=== PATIENT | female | born 1990 | race Caucasian/White ===

== ENCOUNTER 2016-12-18 13:56 | Inpatient (IN) | payer BC ==
[2016-12-18] MEDS: Lactated Ringers 1,000 ML IV SCH ×3 (14:30→19:26)
[2016-12-18] MEDS ORDERED: Sodium Chloride 0.9% 10 ML Syringe FLUSH PRN (14:31)
[2016-12-18] MEDS ORDERED: Ondansetron 4 MG/2 ML SDV IVPUSH PRN (14:31)
[2016-12-18] MEDS ORDERED: Nalbuphine 20 MG/1 ML Amp IVPUSH PRN (14:31)
[2016-12-18] MEDS ORDERED: Oxytocin/Lactated Ringers 10 UNIT/1,000 ML BAG IV SCH (14:45)
[2016-12-18] MEDS ORDERED: diphenhydrAMINE 50 MG/ML SDV IVPUSH PRN (15:08)
[2016-12-18] MEDS: fentaNYL 100 MCG/2 ML SDV EPIDUR PRN ×2 (15:31→21:41)
[2016-12-18] MEDS: Bupivacaine/fentaNYL/NS 100 ML Bag EPIDUR SCH ×2 (15:31→22:57)
--- NOTE | 2016-12-18 15:34 | PCM.PREANE ---
Preanesthetic Assessment - Anesthesia/Transfusion/Family Hx Anesthesia History: Prior Anesthesia Without Reaction Family History of Anesthesia Reaction: No Transfusion History: No Prior Transfusion(s) - Review of Systems General: No Symptoms Pulmonary: No Symptoms Cardiovascular: No Symptoms Gastrointestinal: No Symptoms Neurological: No Symptoms Other: Reports: None - Physical Assessment Pulse: 101 O2 Sat by Pulse Oximetry: 97 Respiratory Rate: 19 Blood Pressure: 119/43 Temperature: 36.6 C Height: 1.68 m Weight: 90.265 kg ASA Class: 2 Mental Status: Alert & Oriented x3 Airway Class: Mallampati = 1 Dentition: Reports: Normal Dentition Thyro-Mental Finger Breadths: 3 Mouth Opening Finger Breadths: 3 ROM/Head Extension: Full Lungs: Clear to Auscultation, Normal Respiratory Effort Cardiovascular: Regular Rate, Regular Rhythm, No Murmurs - Lab Values: Laboratory Last Values WBC 11.63 K/mm3 (3.98-10.04) H 12/18/16 14:45 RBC 4.57 M/mm3 (3.98-5.22) 12/18/16 14:45 Hgb 14.0 gm/L (11.2-15.7) 12/18/16 14:45 Hct 40.4 % (34.1-44.9) 12/18/16 14:45 MCV 88.4 fl (79.4-94.8) 12/18/16 14:45 MCH 30.6 pg (25.6-32.2) 12/18/16 14:45 MCHC 34.7 g/dl (32.2-35.5) 12/18/16 14:45 RDW Std Deviation 40.5 fL (36.4-46.3) 12/18/16 14:45 Plt Count 218 K/mm3 (182-369) 12/18/16 14:45 MPV 10.3 fl (9.4-12.3) 12/18/16 14:45 Neut % (Auto) 79.2 % (34.0-71.1) H 12/18/16 14:45 Lymph % (Auto) 11.9 % (19.3-51.7) L 12/18/16 14:45 [place] % (Auto) 8.1 % (4.7-12.5) 12/18/16 14:45 Eos % (Auto) 0.3 (0.7-5.8) L 12/18/16 14:45 Baso % (Auto) 0.2 % (0.1-1.2) 12/18/16 14:45 Neut # (Auto) 9.21 K/mm3 (1.56-6.13) H 12/18/16 14:45 Lymph # (Auto) 1.38 K/mm3 (1.18-3.74) 12/18/16 14:45 [place] # (Auto) 0.94 K/mm3 (0.24-0.36) H 12/18/16 14:45 Eos # (Auto) 0.04 K/mm3 (0.04-0.36) 12/18/16 14:45 Baso # (Auto) 0.02 K/mm3 (0.01-0.08) 12/18/16 14:45 - Allergies Allergies/Adverse Reactions: Allergies Allergy/AdvReac Type Severity Reaction Status Date / Time No Known Allergies Allergy Verified 12/18/16 14:36 - Anesthesia Plan Pre-Op Medication Ordered: None - Acknowledgements Anesthesia Type Planned: Epidural Pt an Appropriate Candidate for the Planned Anesthesia: Yes Alternatives and Risks of Anesthesia Discussed w Pt/Guardian: Yes Pt/Guardian Understands and Agrees with Anesthesia Plan: Yes PreAnesthesia Questionnaire Gastrointestinal History: Reports: GERD - HOME MEDS Home Medications: Home Meds PNV95/Ferrous Fumarate/FA [ Vitamin Tablet] 1 each PO DAILY 12/18/16 [ History] - CURRENT (IN HOUSE) MEDS Current Meds: Current Medications Diphenhydramine HCl (Benadryl) 25 mg IVPUSH Q6H PRN PRN Reason: Itching Ephedrine Sulfate (Ephedrine Sulfate) 5 mg IVPUSH ASDIRECTED PRN PRN Reason: HYPOTENTSION Fentanyl (Sublimaze) 100 mcg EPIDUR Q3H PRN PRN Reason: PAIN Last Admin: 12/18/16 15:31 Dose: 100 mcg Fentanyl/Bupivacaine HCl (Fentanyl/Bupivacaine/Ns 2 Mcg-0.125% 100 Ml) 100 ml EPIDUR ASDIRECTED LUIS A Last Admin: 12/18/16 15:31 Dose: 100 ml Lactated Ringer's (Ringers, Lactated) 1,000 mls @ 100 mls/hr IV ASDIRECTED LUIS A Oxytocin/Lactated Ringer's (Pitocin In Lr 10 Units/1,000 Ml) 10 unit in 1,000 mls @ 100 mls/hr IV .CONTINUOUS LUIS A Oxytocin 20 unit/ Lactated (Ringer's) 1,002 mls @ 500 mls/hr IV ASDIRECTED LUIS A Nalbuphine HCl (Nubain) 10 mg IVPUSH Q2H PRN PRN Reason: Pain (moderate 4-6) Ondansetron HCl (Zofran) 4 mg IVPUSH Q4H PRN PRN Reason: Nausea/Vomiting Sodium Chloride (Saline Flush) 10 ml FLUSH ASDIRECTED PRN PRN Reason: Keep Vein Open
[2016-12-18] MEDS: ePHEDrine 50 MG/ML SDV IVPUSH PRN ×2 (15:46→16:34)
--- NOTE | 2016-12-18 16:22 | PCM.LDHP ---
<Miguelina Hartmann - Last Filed: 12/18/16 16:10> L&D History of Present Illness - General Date of Service: 12/18/16 Admit Problem/Dx: Patient Status Order with Admit Dx/Problem 12/18/16 14:31 Patient Status [ADT] Routine Admission Diagnosis/Problem Admission Diagnosis/Problem Source of Information: Patient History Limitations: Reports: No Limitations - History of Present Illness Introduction:: Patient is 26 yo at 39 3/7 wks gestation that presents to labor and delivery for induction. WALLACE is 12/22/16. Blood type O-, antibody negative, GBS- . Patient had routine care. She is no acute distress and reports that this the most relaxed she has been throughout the . Patient does appear lethargic during questioning. Her focused physical was unremarkable. Location, : Reports: Uterus Quality: Reports: Ache, Pressure Severity: Mild - Related Data Allergies/Adverse Reactions: Allergies Allergy/AdvReac Type Severity Reaction Status Date / Time No Known Allergies Allergy Verified 12/18/16 14:36 Home Medications: Home Meds PNV95/Ferrous Fumarate/FA [ Vitamin Tablet] 1 each PO DAILY 12/18/16 [ History] Past Medical History Gastrointestinal History: Reports: GERD : 2 Para: 0 (0010) LMP (Approximate): H&P Review of Systems - Review of Systems: Review Of Systems: See Below General: Reports: Fatigue HEENT: Reports: No Symptoms Pulmonary: Reports: No Symptoms Cardiovascular: Reports: No Symptoms Gastrointestinal: Reports: No Symptoms Genitourinary: Reports: No Symptoms Musculoskeletal: Reports: No Symptoms Skin: Reports: No Symptoms Psychiatric: Reports: No Symptoms Neurological: Reports: No Symptoms Hematologic/Lymphatic: Reports: No Symptoms Immunologic: Reports: No Symptoms L&D Exam - Exam Exam: See Below - Vital Signs Vital Signs: Last Vital Signs Temp 97.9 F 12/18/16 15:33 Pulse 101 H 12/18/16 15:33 Resp 19 12/18/16 15:33 BP 119/43 L 12/18/16 15:33 Pulse Ox 97 12/18/16 15:33 Weight: 199 lb - OB Specific Movement: Active Heart Tones: Present Heart Tones per Min: 138 - Exam General: Alert, Oriented HEENT: Conjunctiva Clear, Mucosa Moist & [place], Nares Patent, Normal Nasal Septum , Posterior Pharynx Clear, Pupils Equal Neck: Supple, Trachea Midline Lungs: Clear to Auscultation, Normal Respiratory Effort Cardiovascular: Regular Rate, Regular Rhythm Rectal Exam: Deferred Extremities: Normal Inspection, Non-Tender, No Pedal Edema, Normal Capillary Refill Skin: Warm, Dry, Intact Psychiatric: Alert, Normal Affect, Normal Mood - Patient Data Lab Results Last 24 hrs: Laboratory Results - last 24 hr 12/18/16 Range/Units 14:45 WBC 11.63 H (3.98-10.04) K/mm3 RBC 4.57 (3.98-5.22) M/mm3 Hgb 14.0 (11.2-15.7) gm/L Hct 40.4 (34.1-44.9) % MCV 88.4 (79.4-94.8) fl MCH 30.6 (25.6-32.2) pg MCHC 34.7 (32.2-35.5) g/dl RDW Std Deviation 40.5 (36.4-46.3) fL Plt Count 218 (182-369) K/mm3 MPV 10.3 (9.4-12.3) fl Neut % (Auto) 79.2 H (34.0-71.1) % Lymph % (Auto) 11.9 L (19.3-51.7) % [place] % (Auto) 8.1 (4.7-12.5) % Eos % (Auto) 0.3 L (0.7-5.8) Baso % (Auto) 0.2 (0.1-1.2) % Neut # (Auto) 9.21 H (1.56-6.13) K/mm3 Lymph # (Auto) 1.38 (1.18-3.74) K/mm3 [place] # (Auto) 0.94 H (0.24-0.36) K/mm3 Eos # (Auto) 0.04 (0.04-0.36) K/mm3 Baso # (Auto) 0.02 (0.01-0.08) K/mm3 Result Diagrams: 12/18/16 14:45 Problem List Initiated/Reviewed/Updated: No Orders Last 24hrs: Active Orders 24 hr Category Date Time Status Patient Status [ADT] Routine ADT 12/18/16 14:31 Active Activity as Tolerated [RC] PFP Care 12/18/16 14:31 Active Communication Order [RC] ASDIRECTED Care 12/18/16 14:31 Active Communication Order [RC] ASDIRECTED Care 12/18/16 15:08 Active Cooling Warming Measures [RC] ASDIRECTED Care 12/18/16 15:07 Active Heart Tones [RC] ASDIRECTED Care 12/18/16 14:31 Active Notify Provider [RC] ASDIRECTED Care 12/18/16 15:08 Active Notify Provider [RC] PFP Care 12/18/16 14:31 Active Notify Provider [RC] PRN Care 12/18/16 14:31 Active Oxygen Therapy [RC] ASDIRECTED Care 12/18/16 15:07 Active Peripheral IV Care [RC] Q2HR Care 12/18/16 14:31 Active Pulse Oximetry [RC] ASDIRECTED Care 12/18/16 15:07 Active Pump Management, Intrathecal [RC] ASDIRECTED Care 12/18/16 14:32 Active Urinary Catheter Assessment [RC] ASDIRECTED Care 12/18/16 14:31 Active Vital Signs [RC] 04,12,20 Care 12/18/16 14:31 Active Regular Diet [DIET] Diet 12/18/16 Breakfast Active Bupivacaine/fentaNYL/NS [fentaNYL/Bupivacaine/NS 2 MCG- Med 12/18/16 15:15 Active 0.125% 100 ML] 100 ml EPIDUR ASDIRECTED Lactated Ringers [Ringers, Lactated] 1,000 ml Med 12/18/16 14:45 Active IV ASDIRECTED Nalbuphine [Nubain] Med 12/18/16 14:31 Active 10 mg IVPUSH Q2H PRN Ondansetron [Zofran] Med 12/18/16 14:31 Active 4 mg IVPUSH Q4H PRN Oxytocin [Pitocin] 20 unit Med 12/18/16 14:45 Active Lactated Ringers [Ringers, Lactated] 1,000 ml IV ASDIRECTED Oxytocin/Lactated Ringers [Pitocin in LR 10 Units/1,000 Med 12/18/16 14:45 Active ML] 10 unit in 1,000 ml IV .CONTINUOUS Sodium Chloride 0.9% [Saline Flush] Med 12/18/16 14:31 Active 10 ml FLUSH ASDIRECTED PRN diphenhydrAMINE [Benadryl] Med 12/18/16 15:08 Active 25 mg IVPUSH Q6H PRN ePHEDrine [ePHEDrine Sulfate] Med 12/18/16 15:08 Active 5 mg IVPUSH ASDIRECTED PRN fentaNYL [Sublimaze] Med 12/18/16 15:08 Active 100 mcg EPIDUR Q3H PRN Electronic Heart Tones Ext w TOCO [WOMSER] Oth 12/18/16 14:31 Ordered Routine Electronic Heart Tones Internal [WOMSER] Per Unit Oth 12/18/16 14:31 Ordered Routine Peripheral IV Insertion Adult [OM.PC] Routine Oth 12/18/16 14:31 Ordered Resuscitation Status Routine Resus Stat 12/18/16 14:31 Ordered Medication Orders Diphenhydramine HCl (Benadryl) 25 mg IVPUSH Q6H PRN PRN Reason: Itching Ephedrine Sulfate (Ephedrine Sulfate) 5 mg IVPUSH ASDIRECTED PRN PRN Reason: HYPOTENTSION Last Admin: 12/18/16 15:46 Dose: 5 mg Fentanyl (Sublimaze) 100 mcg EPIDUR Q3H PRN PRN Reason: PAIN Last Admin: 12/18/16 15:31 Dose: 100 mcg Fentanyl/Bupivacaine HCl (Fentanyl/Bupivacaine/Ns 2 Mcg-0.125% 100 Ml) 100 ml EPIDUR ASDIRECTED COUNTS INCLUDE 234 BEDS AT THE [facility] Last Admin: 12/18/16 15:31 Dose: 100 ml Lactated Ringer's (Ringers, Lactated) 1,000 mls @ 100 mls/hr IV ASDIRECTED COUNTS INCLUDE 234 BEDS AT THE [facility] Last Admin: 12/18/16 15:35 Dose: 999 mls/hr Infusion: 12/18/16 15:31 Dose: 999 mls/hr Admin: 12/18/16 14:30 Dose: 999 mls/hr Oxytocin/Lactated Ringer's (Pitocin In Lr 10 Units/1,000 Ml) 10 unit in 1,000 mls @ 100 mls/hr IV .CONTINUOUS COUNTS INCLUDE 234 BEDS AT THE [facility] Oxytocin 20 unit/ Lactated (Ringer's) 1,002 mls @ 500 mls/hr IV ASDIRECTED COUNTS INCLUDE 234 BEDS AT THE [facility] Nalbuphine HCl (Nubain) 10 mg IVPUSH Q2H PRN PRN Reason: Pain (moderate 4-6) Ondansetron HCl (Zofran) 4 mg IVPUSH Q4H PRN PRN Reason: Nausea/Vomiting Sodium Chloride (Saline Flush) 10 ml FLUSH ASDIRECTED PRN PRN Reason: Keep Vein Open Assessment/Plan Comment:: Patient is 26 yo at 39 3/7 wks gestation that presents to labor and delivery for induction. WALLACE is 12/22/16. Blood type O-, antibody negative, GBS- . Patient had routine care. She is no acute distress and reports that this the most relaxed she has been throughout the . Patient does appear lethargic during questioning. Her focused physical was unremarkable. Plan: Discuss with Dr. Hughes to rupture membranes to progress labor Continue monitoring <Dilshad Hughes - Last Filed: 12/18/16 16:41> L&D History of Present Illness - General Admit Problem/Dx: Patient Status Order with Admit Dx/Problem 12/18/16 14:31 Patient Status [ADT] Routine Admission Diagnosis/Problem Admission Diagnosis/Problem Source of Information: Patient History Limitations: Reports: No Limitations - History of Present Illness Introduction:: Seen and examined by me and discussed with student. H&P Review of Systems - Review of Systems: Review Of Systems: See Below General: Reports: No Symptoms HEENT: Reports: No Symptoms Pulmonary: Reports: No Symptoms Cardiovascular: Reports: No Symptoms Gastrointestinal: Reports: No Symptoms Genitourinary: Reports: No Symptoms Musculoskeletal: Reports: No Symptoms Skin: Reports: No Symptoms Psychiatric: Reports: No Symptoms Neurological: Reports: No Symptoms Hematologic/Lymphatic: Reports: No Symptoms Immunologic: Reports: No Symptoms L&D Exam - Vital Signs Vital Signs: Last Vital Signs Temp 97.9 F 12/18/16 15:33 Pulse 101 H 12/18/16 15:33 Resp 19 12/18/16 15:33 BP 119/43 L 12/18/16 15:33 Pulse Ox 97 12/18/16 15:33 - OB Specific Fundal Height In cm: 39 Contraction Duration (sec): 60 Contraction Frequency (min): 6 Contraction Intensity: Moderate - Aguilar Score Aguilar Score Cervix Position: Midposition Aguilar Score Consistency: Soft Agu[place] Score Effacement: >80% Aguilar Score Dilation: > 5 cm Aguilar Score 's Station: -1 ,0 Aguilar Score Total: 11 - Exam GI/Abdominal Exam: Normal Bowel Sounds Genitourinary: Normal external exam, Normal bimanual exam - Patient Data Lab Results Last 24 hrs: Laboratory Results - last 24 hr 12/18/16 Range/Units 14:45 WBC 11.63 H (3.98-10.04) K/mm3 RBC 4.57 (3.98-5.22) M/mm3 Hgb 14.0 (11.2-15.7) gm/L Hct 40.4 (34.1-44.9) % MCV 88.4 (79.4-94.8) fl MCH 30.6 (25.6-32.2) pg MCHC 34.7 (32.2-35.5) g/dl RDW Std Deviation 40.5 (36.4-46.3) fL Plt Count 218 (182-369) K/mm3 MPV 10.3 (9.4-12.3) fl Neut % (Auto) 79.2 H (34.0-71.1) % Lymph % (Auto) 11.9 L (19.3-51.7) % [place] % (Auto) 8.1 (4.7-12.5) % Eos % (Auto) 0.3 L (0.7-5.8) Baso % (Auto) 0.2 (0.1-1.2) % Neut # (Auto) 9.21 H (1.56-6.13) K/mm3 Lymph # (Auto) 1.38 (1.18-3.74) K/mm3 [place] # (Auto) 0.94 H (0.24-0.36) K/mm3 Eos # (Auto) 0.04 (0.04-0.36) K/mm3 Baso # (Auto) 0.02 (0.01-0.08) K/mm3 Result Diagrams: 12/18/16 14:45 - Problem List (1) 39 weeks gestation of SNOMED Code(s): 33377026 ICD Code: Z3A.39 - 39 WEEKS GESTATION OF Status: Acute Current Visit: Yes Problem List Initiated/Reviewed/Updated: No Orders Last 24hrs: Active Orders 24 hr Category Date Time Status Patient Status [ADT] Routine ADT 12/18/16 14:31 Active Activity as Tolerated [RC] PFP Care 12/18/16 14:31 Active Communication Order [RC] ASDIRECTED Care 12/18/16 14:31 Active Communication Order [RC] ASDIRECTED Care 12/18/16 15:08 Active Cooling Warming Measures [RC] ASDIRECTED Care 12/18/16 15:07 Active Heart Tones [RC] ASDIRECTED Care 12/18/16 14:31 Active Notify Provider [RC] ASDIRECTED Care 12/18/16 15:08 Active Notify Provider [RC] PFP Care 12/18/16 14:31 Active Notify Provider [RC] PRN Care 12/18/16 14:31 Active Oxygen Therapy [RC] ASDIRECTED Care 12/18/16 15:07 Active Peripheral IV Care [RC] Q2HR Care 12/18/16 14:31 Active Pulse Oximetry [RC] ASDIRECTED Care 12/18/16 15:07 Active Pump Management, Intrathecal [RC] ASDIRECTED Care 12/18/16 14:32 Active Urinary Catheter Assessment [RC] ASDIRECTED Care 12/18/16 14:31 Active Vital Signs [RC] 04,12,20 Care 12/18/16 14:31 Active Regular Diet [DIET] Diet 12/18/16 Breakfast Active Bupivacaine/fentaNYL/NS [fentaNYL/Bupivacaine/NS 2 MCG- Med 12/18/16 15:15 Active 0.125% 100 ML] 100 ml EPIDUR ASDIRECTED Lactated Ringers [Ringers, Lactated] 1,000 ml Med 12/18/16 14:45 Active IV ASDIRECTED Nalbuphine [Nubain] Med 12/18/16 14:31 Active 10 mg IVPUSH Q2H PRN Ondansetron [Zofran] Med 12/18/16 14:31 Active 4 mg IVPUSH Q4H PRN Oxytocin [Pitocin] 20 unit Med 12/18/16 14:45 Active Lactated Ringers [Ringers, Lactated] 1,000 ml IV ASDIRECTED Oxytocin/Lactated Ringers [Pitocin in LR 10 Units/1,000 Med 12/18/16 14:45 Active ML] 10 unit in 1,000 ml IV .CONTINUOUS Sodium Chloride 0.9% [Saline Flush] Med 12/18/16 14:31 Active 10 ml FLUSH ASDIRECTED PRN diphenhydrAMINE [Benadryl] Med 12/18/16 15:08 Active 25 mg IVPUSH Q6H PRN ePHEDrine [ePHEDrine Sulfate] Med 12/18/16 15:08 Active 5 mg IVPUSH ASDIRECTED PRN fentaNYL [Sublimaze] Med 12/18/16 15:08 Active 100 mcg EPIDUR Q3H PRN Electronic Heart Tones Ext w TOCO [WOMSER] Oth 12/18/16 14:31 Ordered Routine Electronic Heart Tones Internal [WOMSER] Per Unit Oth 12/18/16 14:31 Ordered Routine Peripheral IV Insertion Adult [OM.PC] Routine Oth 12/18/16 14:31 Ordered Resuscitation Status Routine Resus Stat 12/18/16 14:31 Ordered Medication Orders Diphenhydramine HCl (Benadryl) 25 mg IVPUSH Q6H PRN PRN Reason: Itching Ephedrine Sulfate (Ephedrine Sulfate) 5 mg IVPUSH ASDIRECTED PRN PRN Reason: HYPOTENTSION Last Admin: 12/18/16 16:34 Dose: 5 mg Admin: 12/18/16 15:46 Dose: 5 mg Fentanyl (Sublimaze) 100 mcg EPIDUR Q3H PRN PRN Reason: PAIN Last Admin: 12/18/16 15:31 Dose: 100 mcg Fentanyl/Bupivacaine HCl (Fentanyl/Bupivacaine/Ns 2 Mcg-0.125% 100 Ml) 100 ml EPIDUR ASDIRECTED COUNTS INCLUDE 234 BEDS AT THE [facility] Last Admin: 12/18/16 15:31 Dose: 100 ml Lactated Ringer's (Ringers, Lactated) 1,000 mls @ 100 mls/hr IV ASDIRECTED COUNTS INCLUDE 234 BEDS AT [facility] Last Admin: 12/18/16 15:35 Dose: 999 mls/hr Infusion: 12/18/16 15:31 Dose: 999 mls/hr Admin: 12/18/16 14:30 Dose: 999 mls/hr Oxytocin/Lactated Ringer's (Pitocin In Lr 10 Units/1,000 Ml) 10 unit in 1,000 mls @ 100 mls/hr IV .CONTINUOUS COUNTS INCLUDE 234 BEDS AT [facility] Oxytocin 20 unit/ Lactated (Ringer's) 1,002 mls @ 500 mls/hr IV ASDIRECTED COUNTS INCLUDE 234 BEDS AT [facility] Nalbuphine HCl (Nubain) 10 mg IVPUSH Q2H PRN PRN Reason: Pain (moderate 4-6) Ondansetron HCl (Zofran) 4 mg IVPUSH Q4H PRN PRN Reason: Nausea/Vomiting Sodium Chloride (Saline Flush) 10 ml FLUSH ASDIRECTED PRN PRN Reason: Keep Vein Open Assessment/Plan Comment:: Seen and examined by me and discussed with student.
--- NOTE | 2016-12-18 16:44 | PCM.SN ---
- Free Text/Narrative Note: Cervix 5 cm, 90%, soft, midposition, vertex-1 amniotomy performed and clear fluids at 1630 hrs. Cat I FHT.
--- NOTE | 2016-12-18 19:01 | PCM.SN ---
- Free Text/Narrative Note: 5 cm dilated now will start Pitocin augmentation.
--- NOTE | 2016-12-18 21:49 | PCM.SN ---
- Free Text/Narrative Note: 2127 in room bolus epidural start at T8 bolus with 2ml fentanyl 8ml 25% bupivicaine PF VSS out room at 2145
[2016-12-19] MEDS ORDERED: cefOXitin 2 GM in Sodium Chloride 0.9% 100 ML IV ONE (02:21)
[2016-12-19] MEDS ORDERED: cefOXitin 100 ML IV ONE (02:30)
[2016-12-19] MEDS ORDERED: Oxytocin 10 Units/1 ML SDV ONE (03:20)
--- NOTE | 2016-12-19 03:53 | PCM.DEL ---
L & D Note - General Info Date of Service: 12/19/16 Mother's Due Date: 12/23/16 - Delivery Note Labor: Spontaneous, Augmented by ARM, Augmented by Oxytocin Delivery Outcome: Livebirth (Female liveborn Monday12/19/16 0329 hrs. ROP Apgars 8/9 weight 3300 g/7 pounds 4.4 ounces.) Delivery Method: Spontaneous Vaginal Delivery-Single Delivery Mode: Spontaneous Presentation: Right Occiput Posterior (ROP) Nuchal Cord: None Prep: Povidone-Iodine (Betadine Anesthesia Type: Epidural Amniotic Fluid Description: Clear Episiotomy Type: None Laceration: 1st Degree (Sutured with 3-0 Monocryl times one midline) Placenta: Intact, Spontaneous (Aerobic anaerobic cultures taken of the surface of the placenta due to 101.4 temperature approximately hour and a half prior to delivery. 0335 hrs. on Monday12/19/16 intact examined discarded after cultures taken.) Cord: 3 Vessels Estimated Blood Loss: 250 Resuscitation Needed: No : Suctioned, Bulb Syringe, Stimulated, Warmed, [place] Used, Warmer Used Provider: Dilshad Hughes Score 1 min: 8 Score 5 min: 9 - Patient Data Vitals - Most Recent: Last Vital Signs Temp 97.9 F 12/18/16 15:33 Pulse 101 H 12/18/16 15:33 Resp 19 12/18/16 15:33 BP 119/43 L 12/18/16 15:33 Pulse Ox 97 12/18/16 15:33 Weight - Most Recent: 199 lb Lab Results Last 24 Hours: Laboratory Results - last 24 hr 12/18/16 Range/Units 14:45 WBC 11.63 H (3.98-10.04) K/mm3 RBC 4.57 (3.98-5.22) M/mm3 Hgb 14.0 (11.2-15.7) gm/L Hct 40.4 (34.1-44.9) % MCV 88.4 (79.4-94.8) fl MCH 30.6 (25.6-32.2) pg MCHC 34.7 (32.2-35.5) g/dl RDW Std Deviation 40.5 (36.4-46.3) fL Plt Count 218 (182-369) K/mm3 MPV 10.3 (9.4-12.3) fl Neut % (Auto) 79.2 H (34.0-71.1) % Lymph % (Auto) 11.9 L (19.3-51.7) % [place] % (Auto) 8.1 (4.7-12.5) % Eos % (Auto) 0.3 L (0.7-5.8) Baso % (Auto) 0.2 (0.1-1.2) % Neut # (Auto) 9.21 H (1.56-6.13) K/mm3 Lymph # (Auto) 1.38 (1.18-3.74) K/mm3 [place] # (Auto) 0.94 H (0.24-0.36) K/mm3 Eos # (Auto) 0.04 (0.04-0.36) K/mm3 Baso # (Auto) 0.02 (0.01-0.08) K/mm3 Med Orders - Current: Current Medications Diphenhydramine HCl (Benadryl) 25 mg IVPUSH Q6H PRN PRN Reason: Itching Ephedrine Sulfate (Ephedrine Sulfate) 5 mg IVPUSH ASDIRECTED PRN PRN Reason: HYPOTENTSION Last Admin: 12/18/16 16:34 Dose: 5 mg Fentanyl (Sublimaze) 100 mcg EPIDUR Q3H PRN PRN Reason: PAIN Last Admin: 12/18/16 21:41 Dose: 100 mcg Fentanyl/Bupivacaine HCl (Fentanyl/Bupivacaine/Ns 2 Mcg-0.125% 100 Ml) 100 ml EPIDUR ASDIRECTED LUIS A Last Admin: 12/18/16 22:57 Dose: 100 ml Lactated Ringer's (Ringers, Lactated) 1,000 mls @ 100 mls/hr IV ASDIRECTED LUIS A Last Admin: 12/18/16 19:26 Dose: 100 mls/hr Oxytocin/Lactated Ringer's (Pitocin In Lr 10 Units/1,000 Ml) 10 unit in 1,000 mls @ 100 mls/hr IV .CONTINUOUS LUIS A Oxytocin 20 unit/ Lactated (Ringer's) 1,002 mls @ 500 mls/hr IV ASDIRECTED LUIS A Oxytocin 20 unit/ Lactated (Ringer's) 1,002 mls @ 6.01 mls/hr IV TITRATE LUIS A; 2 MUNITS/MIN PRN Reason: Protocol Last Titration: 12/18/16 20:49 Dose: 3 munits/min, 9.01 mls/hr Nalbuphine HCl (Nubain) 10 mg IVPUSH Q2H PRN PRN Reason: Pain (moderate 4-6) Ondansetron HCl (Zofran) 4 mg IVPUSH Q4H PRN PRN Reason: Nausea/Vomiting Sodium Chloride (Saline Flush) 10 ml FLUSH ASDIRECTED PRN PRN Reason: Keep Vein Open Discontinued Medications Cefoxitin Sodium 2 gm/ Sodium (Chloride) 100 mls @ 200 mls/hr IV ONETIME ONE Stop: 12/19/16 02:50 Cefoxitin Sodium (Mefoxin In Dextrose,Iso-Osm 2 Gm/50 Ml) 100 mls @ 100 mls/hr IV ONETIME ONE Stop: 12/19/16 03:29 Oxytocin (Pitocin) Confirm Administered Dose 10 unit .ROUTE .STK-MED ONE Stop: 12/19/16 03:21 - Problem List & Annotations (1) 39 weeks gestation of SNOMED Code(s): 98276772 Code(s): Z3A.39 - 39 WEEKS GESTATION OF Status: Acute Current Visit: Yes (2) First degree laceration of perineum during delivery, SNOMED Code(s): 047613672 Code(s): O70.0 - FIRST DEGREE PERINEAL LACERATION DURING DELIVERY Status: Acute Current Visit: Yes (3) Pyrexia, puerperal Status: Acute Current Visit: Yes - Problem List Review Problem List Initiated/Reviewed/Updated: No - My Orders Last 24 Hours: My Active Orders 12/18/16 14:31 Patient Status [ADT] Routine Activity as Tolerated [RC] PFP Communication Order [RC] ASDIRECTED Heart Tones [RC] ASDIRECTED Notify Provider [RC] PFP Notify Provider [RC] PRN Peripheral IV Care [RC] Q2HR Urinary Catheter Assessment [RC] ASDIRECTED Vital Signs [RC] 04,12,20 Nalbuphine [Nubain] 10 mg IVPUSH Q2H PRN Ondansetron [Zofran] 4 mg IVPUSH Q4H PRN Sodium Chloride 0.9% [Saline Flush] 10 ml FLUSH ASDIRECTED PRN Electronic Heart Tones Ext w TOCO [WOMSER] Routine Electronic Heart Tones Internal [WOMSER] Per Unit Routine Peripheral IV Insertion Adult [OM.PC] Routine Resuscitation Status Routine 12/18/16 14:32 Pump Management, Intrathecal [RC] ASDIRECTED 12/18/16 14:45 Lactated Ringers [Ringers, Lactated] 1,000 ml IV ASDIRECTED Oxytocin [Pitocin] 20 unit Lactated Ringers [Ringers, Lactated] 1,000 ml IV ASDIRECTED Oxytocin/Lactated Ringers [Pitocin in LR 10 Units/1,000 ML] 10 unit in 1,000 ml IV .CONTINUOUS 12/18/16 19:30 Oxytocin [Pitocin] 20 unit Lactated Ringers [Ringers, Lactated] 1,000 ml IV TITRATE 12/18/16 Breakfast Regular Diet [DIET] - Plan Plan:: Seen and examined by me and discussed with student.
[2016-12-19] MEDS ORDERED: Witch Hazel Medicated Pads 100/Jar TOP PRN (04:02)
[2016-12-19] MEDS ORDERED: Benzocaine/Menthol 20%-0.5% Spray 56 GM Canister TOP PRN (04:02)
[2016-12-19] MEDS ORDERED: Lanolin 100% Cream 7 GM Tube TOP PRN (04:02)
[2016-12-19] MEDS ORDERED: Acetaminophen 325 MG Tab PO PRN (04:02)
[2016-12-19] MEDS ORDERED: Docusate Sodium 100 MG Cap PO PRN (04:02)
[2016-12-19] MEDS ORDERED: Oxytocin 10 Units/1 ML SDV IM ONE (04:02)
--- NOTE | 2016-12-19 07:33 | PCM48HPAN ---
Post Anesthesia Note - EVALUATION WITHIN 48HRS OF ANESTHETIC Vital Signs in Normal Range: Yes Patient Participated in Evaluation: Yes Respiratory Function Stable: Yes Airway Patent: Yes Cardiovascular Function Stable: Yes Hydration Status Stable: Yes Pain Control Satisfactory: Yes Nausea and Vomiting Control Satisfactory: Yes Mental Status Recovered: Yes
[2016-12-19] MEDS: Ibuprofen 600 MG Tab PO PRN ×3 (07:56→21:25)
[2016-12-19] MEDS: Prenatal Multivitamin with Calcium/Folic Acid/Iron Tab PO SCH ×2 (07:57→11:15)
[2016-12-19] MEDS ORDERED: Bupivacaine 0.25% 10 ML SDV ONE (22:22)
--- NOTE | 2016-12-20 10:44 | PCM.SN ---
- Free Text/Narrative Note: day 1. Patient delivered early yesterday morning, chest clear no abnormal breath sounds. Cardiovascular examination no abnormal heart sounds. Uterus is involuting normally, nontender, at umbilicus -1. No heavy vaginal bleeding. No leg cramping. Patient has been afebrile since her delivery but she did receive 2 g of Mefoxin intravenously during second stage of labor because of elevated temperature. We will probably be able to go home tomorrow.
[2016-12-20] MEDS: Prenatal Multivitamin with Calcium/Folic Acid/Iron Tab PO SCH (20:03)
--- NOTE | 2016-12-21 09:48 | PCM.SN ---
- Free Text/Narrative Note: Post Progress Note PPD # 2 Subjective: Doing well overall. Ambulating without difficulty. Lochia minimal. Voiding without difficulty. Tolerating regular diet. Pain has been improving and she reports only some soreness where the sutures were placed and in her low back when she first stands. Pain is controlled with oral medications. Breast feeding with minimal difficulty. Objective: Vitals: Last Vital Signs Temp 36.8 C 12/21/16 03:56 Pulse 107 H 12/21/16 03:56 Resp 14 12/21/16 03:56 BP 128/80 12/21/16 03:56 Pulse Ox 100 12/21/16 03:56 Physical Exam General: Alert and oriented, no acute distress Lungs: Clear to auscultation bilaterally Heart: Regular rate and rhythm Abdomen: Soft, minimal appropriate tenderness, non-distended, fundus midline, nontender, and below the umbilicus Extremities: Trace edema in bilateral lower extremities to mid shins ASSESSMENT: 26-year-old female G 2 P 1011 s/p normal vaginal delivery PPD #2, complicated by Rh negative status, infant Rh positive, mother status post program injection , elevated temperature with Mefoxin administration in second stage of labor PLAN: Doing well Breast feeding with minimal difficulty. Assist as needed Lochia minimal. Continue to monitor for appropriate lochia. Continue routine care Status post program injection for maternal Rh- status and Rh+ status Anticipate discharge home today Vern Dorman MD 9:49 AM 12/21/16
--- NOTE | 2016-12-21 09:54 | PCM.DCSUM1 ---
Discharge Summary - Hospital Course Free Text/Narrative:: Labor: Spontaneous, Augmented by ARM, Augmented by Oxytocin Delivery Outcome: Livebirth (Female liveborn Monday12/19/16 0329 hrs. ROP Apgars 8/9 weight 3300 g/7 pounds 4.4 ounces.) Delivery Method: Spontaneous Vaginal Delivery-Single Delivery Mode: Spontaneous Presentation: Right Occiput Posterior (ROP) Nuchal Cord: None Prep: Povidone-Iodine (Betadine Anesthesia Type: Epidural Amniotic Fluid Description: Clear Episiotomy Type: None Laceration: 1st Degree (Sutured with 3-0 Monocryl times one midline) Placenta: Intact, Spontaneous (Aerobic anaerobic cultures taken of the surface of the placenta due to 101.4 temperature approximately hour and a half prior to delivery. 0335 hrs. on Monday12/19/16 intact examined discarded after cultures taken.) Cord: 3 Vessels Estimated Blood Loss: 250 Resuscitation Needed: No : Suctioned, Bulb Syringe, Stimulated, Warmed, [place] Used, Warmer Used Provider: Dilshad Hughes Score 1 min: 8 Score 5 min: 9 HPI Initial Comments: Labor: Spontaneous, Augmented by ARM, Augmented by Oxytocin Delivery Outcome: Livebirth (Female liveborn Monday12/19/16 0329 hrs. ROP Apgars 8/9 weight 3300 g/7 pounds 4.4 ounces.) Delivery Method: Spontaneous Vaginal Delivery-Single Delivery Mode: Spontaneous Presentation: Right Occiput Posterior (ROP) Nuchal Cord: None Prep: Povidone-Iodine (Betadine Anesthesia Type: Epidural Amniotic Fluid Description: Clear Episiotomy Type: None Laceration: 1st Degree (Sutured with 3-0 Monocryl times one midline) Placenta: Intact, Spontaneous (Aerobic anaerobic cultures taken of the surface of the placenta due to 101.4 temperature approximately hour and a half prior to delivery. 0335 hrs. on Monday12/19/16 intact examined discarded after cultures taken.) Cord: 3 Vessels Estimated Blood Loss: 250 Resuscitation Needed: No : Suctioned, Bulb Syringe, Stimulated, Warmed, Downing Used, Warmer Used Provider: Dilshad Hughes Score 1 min: 8 Score 5 min: 9 Brief History: Labor: Spontaneous, Augmented by ARM, Augmented by Oxytocin. Delivery Outcome: Livebirth (Female liveborn Monday12/19/16 0329 hrs. ROP Apgars 8/9 weight 3300 g/7 pounds 4.4 ounces.). Infant Delivery Method: Spontaneous Vaginal Delivery-Single. Infant Delivery Mode: Spontaneous. Presentation: Right Occiput Posterior (ROP). Nuchal Cord: None. Prep: Povidone -Iodine (Betadine. Anesthesia Type: Epidural. Amniotic Fluid Description: Clear. Episiotomy Type: None. Laceration: 1st Degree (Sutured with 3-0 Monocryl times one midline). Placenta: Intact, Spontaneous (Aerobic anaerobic cultures taken of the surface of the placenta due to 101.4 temperature approximately hour and a half prior to delivery. 0335 hrs. on Monday12/19/16 intact examined discarded after cultures taken.). Cord: 3 Vessels. Estimated Blood Loss: 250. Resuscitation Needed: No. : Suctioned, Bulb Syringe, Stimulated, Warmed, Downing Used, Warmer Used. Provider: Dilshad Hughes. Score 1 min: 8. Score 5 min: 9 - Discharge Data Discharge Date: 12/21/16 Discharge Disposition: Home, Self-Care 01 Condition: Good - Discharge Diagnosis/Problem(s) (1) (normal spontaneous vaginal delivery) SNOMED Code(s): 51946595 ICD Code: O80 - ENCOUNTER FOR FULL-TERM UNCOMPLICATED DELIVERY Status: Acute Current Visit: Yes (2) Rh negative status during SNOMED Code(s): 972090475 ICD Code: O09.899 - SUPERVISION OF OTHER HIGH RISK PREGNANCIES, UNSP TRIMESTER Status: Acute Current Visit: Yes (3) 39 weeks gestation of SNOMED Code(s): 54559795 ICD Code: Z3A.39 - 39 WEEKS GESTATION OF Status: Acute Current Visit: Yes (4) First degree laceration of perineum during delivery, SNOMED Code(s): 285252318 ICD Code: O70.0 - FIRST DEGREE PERINEAL LACERATION DURING DELIVERY Status: Acute Current Visit: Yes (5) Pyrexia, puerperal Status: Acute Current Visit: Yes - Patient Summary/Data Operative Procedure(s) Performed: Repair of perineal first-degree laceration Complications: Patient with elevated temperature in labor and given Mefoxin dose 1. Consults: None Hospital Course: Labor: Spontaneous, Augmented by ARM, Augmented by Oxytocin Delivery Outcome: Livebirth (Female liveborn Monday12/19/16 0329 hrs. ROP Apgars 8/9 weight 3300 g/7 pounds 4.4 ounces.) Delivery Method: Spontaneous Vaginal Delivery-Single Infant Delivery Mode: Spontaneous Presentation: Right Occiput Posterior (ROP) Nuchal Cord: None Prep: Povidone-Iodine (Betadine Anesthesia Type: Epidural Amniotic Fluid Description: Clear Episiotomy Type: None Laceration: 1st Degree (Sutured with 3-0 Monocryl times one midline) Placenta: Intact, Spontaneous (Aerobic anaerobic cultures taken of the surface of the placenta due to 101.4 temperature approximately hour and a half prior to delivery. 0335 hrs. on Monday12/19/16 intact examined discarded after cultures taken.) Cord: 3 Vessels Estimated Blood Loss: 250 Resuscitation Needed: No [place]: Suctioned, Bulb Syringe, Stimulated, Warmed, Downing Used, Warmer Used Provider: Dilshad Hughes Score 1 min: 8 Score 5 min: 9 Patient did well after delivery and baby was monitored for 48 hours due to elevated temperature in labor. Patient was meeting all postoperative milestones on day #1 including ambulating, tolerating a regular diet and voiding without difficulty. She was having minimal vaginal bleeding. She is breast-feeding without difficulty. Patient was Rh- and infant is Rh+ and she was given a dose of RhoGAM prior to discharge. On day #2 she continued be doing well and meeting all milestones. She desired to be discharged home. She will follow-up with Dr. Pond in 6 weeks or earlier as needed. - Patient Instructions Diet: Regular Diet as Tolerated Activity: As Tolerated Activity, Other: Nothing in the vagina for 6 weeks Driving: May Drive Today Showering/Bathing: May Shower, No Tub Bathing/Swimming Notify Provider of: Fever, Increased Pain, Swelling and Redness, Drainage, Nausea and/or Vomiting - Discharge Plan Home Medications: Home Meds PNV95/Ferrous Fumarate/FA [ Vitamin Tablet] 1 each PO DAILY 12/18/16 [ History] Acetaminophen [Tylenol] 650 mg PO Q4H PRN tablet 12/21/16 [Rx] Benzocaine/Menthol [Dermoplast Pain Relief Velva] 1 spray TOP ASDIRECTED PRN canister 12/21/16 [Rx] Docusate Sodium [Colace] 100 mg PO BID PRN cap 12/21/16 [Rx] Ibuprofen [IJD: Ibuprofen] 600 mg PO Q6H PRN tablet 12/21/16 [Rx] Lanolin [Lansinoh HPA] 1 applic TOP ASDIRECTED PRN tube 12/21/16 [Rx] Jay Payne [Tucks] 1 pad TOP ASDIRECTED PRN pad 12/21/16 [Rx] Patient Handouts: Vaginal Delivery, Vaginal Delivery, Care After, Pelvic Rest, Care After Vaginal Delivery Referrals: Vianey Pond MD [Primary Care Provider] - (Follow-up in 6 weeks for visit) - Discharge Summary/Plan Comment DC Time >30 min.: No - Patient Data Vitals - Most Recent: Last Vital Signs Temp 36.8 C 12/21/16 03:56 Pulse 107 H 12/21/16 03:56 Resp 14 12/21/16 03:56 BP 128/80 12/21/16 03:56 Pulse Ox 100 12/21/16 03:56 Weight - Most Recent: 90.265 kg Lab Results - Last 24 hrs: Laboratory Results - last 24 hr 12/19/16 Range/Units 08:25 Antibody Identification Anti-D JASON Results - Last 24 hrs: Microbiology 12/19/16 03:35 Gram Stain - Final Placenta - Placenta, Side Anaerobic Culture - Preliminary Med Orders - Current: Current Medications Acetaminophen (Tylenol) 650 mg PO Q4H PRN PRN Reason: mild pain or fever Benzocaine/Menthol (Dermoplast Pain Relief Velva) 0 gm TOP ASDIRECTED PRN PRN Reason: Perineal Comfort Measure Last Admin: 12/19/16 06:48 Dose: 1 canister Docusate Sodium (Colace) 100 mg PO BID PRN PRN Reason: Constipation Emollient Ointment (Lansinoh Hpa) 0 gm TOP ASDIRECTED PRN PRN Reason: Sore Nipples Last Admin: 12/20/16 12:50 Dose: 1 tube Ibuprofen (Motrin) 600 mg PO Q4H PRN PRN Reason: Mild pain or fever Last Admin: 12/19/16 21:25 Dose: 600 mg Prenat Multivit/[place]/Iron/Folic Ac ( Plus Iron) 1 each PO DAILY LUIS A Last Admin: 12/20/16 20:03 Dose: Not Given Jay Payne (Tucks) 1 pad TOP ASDIRECTED PRN PRN Reason: Hemorrhoid pain Last Admin: 12/19/16 06:48 Dose: 1 box Discontinued Medications Bupivacaine HCl (Sensorcaine-Mpf 0.25%) 10 ml .ROUTE .STK-MED ONE Stop: 12/19/16 22:23 Diphenhydramine HCl (Benadryl) 25 mg IVPUSH Q6H PRN PRN Reason: Itching Ephedrine Sulfate (Ephedrine Sulfate) 5 mg IVPUSH ASDIRECTED PRN PRN Reason: HYPOTENTSION Last Admin: 12/18/16 16:34 Dose: 5 mg Fentanyl (Sublimaze) 100 mcg EPIDUR Q3H PRN PRN Reason: PAIN Last Admin: 12/18/16 21:41 Dose: 100 mcg Fentanyl/Bupivacaine HCl (Fentanyl/Bupivacaine/Ns 2 Mcg-0.125% 100 Ml) 100 ml EPIDUR ASDIRECTED LUIS A Last Admin: 12/18/16 22:57 Dose: 100 ml Lactated Ringer's (Ringers, Lactated) 1,000 mls @ 100 mls/hr IV ASDIRECTED LUIS A Last Admin: 12/18/16 19:26 Dose: 100 mls/hr Oxytocin/Lactated Ringer's (Pitocin In Lr 10 Units/1,000 Ml) 10 unit in 1,000 mls @ 100 mls/hr IV .CONTINUOUS LUIS A Oxytocin 20 unit/ Lactated (Ringer's) 1,002 mls @ 500 mls/hr IV ASDIRECTED LUIS A Oxytocin 20 unit/ Lactated (Ringer's) 1,002 mls @ 6.01 mls/hr IV TITRATE LUIS A; 2 MUNITS/MIN PRN Reason: Protocol Last Titration: 12/18/16 20:49 Dose: 3 munits/min, 9.01 mls/hr Cefoxitin Sodium 2 gm/ Sodium (Chloride) 100 mls @ 200 mls/hr IV ONETIME ONE Stop: 12/19/16 02:50 Last Admin: 12/19/16 06:55 Dose: Not Given Cefoxitin Sodium (Mefoxin In Dextrose,Iso-Osm 2 Gm/50 Ml) 100 mls @ 100 mls/hr IV ONETIME ONE Stop: 12/19/16 03:29 Last Admin: 12/19/16 02:35 Dose: 100 mls/hr Nalbuphine HCl (Nubain) 10 mg IVPUSH Q2H PRN PRN Reason: Pain (moderate 4-6) Ondansetron HCl (Zofran) 4 mg IVPUSH Q4H PRN PRN Reason: Nausea/Vomiting Oxytocin (Pitocin) Confirm Administered Dose 10 unit .ROUTE .STK-MED ONE Stop: 12/19/16 03:21 Last Admin: 12/19/16 06:54 Dose: Not Given Oxytocin (Pitocin) 20 unit IM ONETIME ONE Stop: 12/19/16 04:03 Last Admin: 12/19/16 03:33 Dose: 20 unit Sodium Chloride (Saline Flush) 10 ml FLUSH ASDIRECTED PRN PRN Reason: Keep Vein Open *Q Meaningful Use (DIS) - VTE *Q VTE Criteria *Q: - Stroke *Q Stroke Criteria *Q: - AMI *Q AMI Criteria *Q:
== END 2016-12-21 14:02 | disposition home or self-care (01) | DRG 560 ==
LOC: JD.OBCHECK 13:56 → JD.OB 13:56 → JD.OBCHECK 14:30 → JD.OB 14:31 → OBSVTOIN 12-19 03:29 → JD.OB 12-19 03:29
PROVIDERS: ADMIT Obstetrics & Gynecology; ATTEND Obstetrics & Gynecology
PROC: 10907ZC Drainage of Amniotic Fluid, Therapeutic from Products of Conception, Via Natural or Artificial Opening (ICD-10-PCS; 2016-12-18)
PROC: 00HU33Z Insertion of Infusion Device into Spinal Canal, Percutaneous Approach (ICD-10-PCS; 2016-12-18)
PROC: 3E0R3BZ Introduction of Anesthetic Agent into Spinal Canal, Percutaneous Approach (ICD-10-PCS; 2016-12-18)
PROC: 10E0XZZ Delivery of Products of Conception, External Approach (ICD-10-PCS; principal; 2016-12-19)
PROC: 0HQ9XZZ Repair Perineum Skin, External Approach (ICD-10-PCS; 2016-12-19)
DX: O70.0 First degree perineal laceration during delivery (principal); Z3A.39 39 weeks gestation of pregnancy; Z37.0 Single live birth; O75.2 Pyrexia during labor, not elsewhere classified
CPT/HCPCS: 01967; 36415; 51702; 59300; 59409; 85025; 85461; 86850; 86870; 86900; 86901; 87075; 87077; 87184; 87205; A9270-GY; J0694; J2590; J2790; J3010; J7120

== ENCOUNTER 2021-03-11 21:56 | Inpatient (IN) | payer BC ==
[~2021-03-11 21:56] MED LIST: Bupivacaine 0.25% 10 ML SDV ONE
[2021-03-11] MEDS ORDERED: Calcium Carbonate 500 MG Tab.Chew PO PRN (22:41)
[2021-03-11] MEDS ORDERED: Nalbuphine 10 MG/1 ML Vial IVPUSH PRN (22:41)
[2021-03-11] MEDS ORDERED: Oxytocin/Lactated Ringers 10 UNIT/1,000 ML BAG IV SCH ×2 (22:45)
[2021-03-11] MEDS: Lactated Ringers 1,000 ML IV SCH (23:13)
--- NOTE | 2021-03-12 03:16 | PCM.PREANE ---
Preanesthetic Assessment - Procedure Proposed Procedure: Labor epidural - Anesthesia/Transfusion/Family Hx Anesthesia History: Prior Anesthesia Without Reaction Family History of Anesthesia Reaction: No Transfusion History: No Prior Transfusion(s) Intubation History: Unknown - Review of Systems General: No Symptoms Pulmonary: No Symptoms Cardiovascular: No Symptoms Gastrointestinal: Abdominal Pain (uterine contractions) Neurological: No Symptoms Other: Reports: Easy Bruising - Physical Assessment NPO Status Date: 03/11/21 NPO Status Time: 19:00 Vital Signs: Last Vital Signs Temp 97.5 F 03/11/21 22:08 Pulse 89 03/11/21 22:08 Resp 16 03/11/21 22:08 BP 132/77 03/11/21 22:08 Pulse Ox 100 03/11/21 22:08 Height: 1.68 m Weight: 94.529 kg ASA Class: 2 Mental Status: Alert & Oriented x3 Airway Class: Mallampati = 2 Dentition: Reports: Normal Dentition Thyro-Mental Finger Breadths: 2 Mouth Opening Finger Breadths: 2 ROM/Head Extension: Full Lungs: Clear to Auscultation, Normal Respiratory Effort Cardiovascular: Regular Rate, Regular Rhythm - Lab Values: Laboratory Last Values WBC 10.55 K/mm3 (3.98-10.04) H 03/11/21 22:53 RBC 4.42 M/mm3 (3.98-5.22) 03/11/21 22:53 Hgb 13.2 gm/dl (11.2-15.7) 03/11/21 22:53 Hct 39.5 % (34.1-44.9) 03/11/21 22:53 MCV 89.4 fl (79.4-94.8) 03/11/21 22:53 MCH 29.9 pg (25.6-32.2) 03/11/21 22:53 MCHC 33.4 g/dl (32.2-35.5) 03/11/21 22:53 RDW Std Deviation 41.9 fL (36.4-46.3) 03/11/21 22:53 Plt Count 200 K/mm3 (182-369) 03/11/21 22:53 MPV 10.4 fl (9.4-12.3) 03/11/21 22:53 Neut % (Auto) 70.4 % (34.0-71.1) 03/11/21 22:53 Lymph % (Auto) 18.8 % (19.3-51.7) L 03/11/21 22:53 [place] % (Auto) 8.7 % (4.7-12.5) 03/11/21 22:53 Eos % (Auto) 1.5 (0.7-5.8) 03/11/21 22:53 Baso % (Auto) 0.2 % (0.1-1.2) 03/11/21 22:53 Neut # (Auto) 7.43 K/mm3 (1.56-6.13) H 03/11/21 22:53 Lymph # (Auto) 1.98 K/mm3 (1.18-3.74) 03/11/21 22:53 [place] # (Auto) 0.92 K/mm3 (0.24-0.36) H 03/11/21 22:53 Eos # (Auto) 0.16 K/mm3 (0.04-0.36) 03/11/21 22:53 Baso # (Auto) 0.02 K/mm3 (0.01-0.08) 03/11/21 22:53 SARS-CoV-2 RNA (RUKHSANA) Positive (NEGATIVE) H 03/11/21 22:50 Blood Type O NEGATIVE 03/11/21 22:53 Gel Antibody Screen Negative 03/11/21 22:53 - Allergies Allergies/Adverse Reactions: Allergies Allergy/AdvReac Type Severity Reaction Status Date / Time No Known Allergies Allergy Verified 12/18/16 14:36 - Acknowledgements Anesthesia Type Planned: Epidural Pt an Appropriate Candidate for the Planned Anesthesia: Yes Alternatives and Risks of Anesthesia Discussed w Pt/Guardian: Yes Pt/Guardian Understands and Agrees with Anesthesia Plan: Yes PreAnesthesia Questionnaire - Past Health History Medical/Surgical History: Denies Medical/Surgical History HEENT History: Reports: Impaired Vision Cardiovascular History: Reports: None Respiratory History: Reports: None Gastrointestinal History: Reports: GERD Genitourinary History: Reports: None CARGO MATE History: Reports: Musculoskeletal History: Reports: None Neurological History: Reports: None Psychiatric History: Reports: None Endocrine/Metabolic History: Reports: None Hematologic History: Reports: None Immunologic History: Reports: None Oncologic (Cancer) History: Reports: None Dermatologic History: Reports: None - Infectious Disease History Infectious Disease History: Reports: Novel Coronavirus - Past Surgical History HEENT Surgical History: Reports: Oral Surgery Other HEENT Surgeries/Procedures: wisdom teeth extraction - SUBSTANCE USE Tobacco Use Status *Q: Never Tobacco User Tobacco Use Within Last Twelve Months: No Second Hand Smoke Exposure: No Days Per Week of Alcohol Use: 0 Number of Drinks Per Day: 0 Total Drinks Per Week: 0 Recreational Drug Use History: No - HOME MEDS Home Medications: Home Meds Pnv No.95/Ferrous Fum/Folic AC [ Vitamin Tablet] 1 each PO DAILY 12/18/16 [History] Docusate Sodium [Colace] 100 mg PO BID PRN cap 02/21/18 [Rx] Ibuprofen [Motrin] 600 mg PO Q6H PRN tablet 02/21/18 [Rx] - CURRENT (IN HOUSE) MEDS Current Meds: Current Medications Calcium Carbonate/Glycine (Calcium Carbonate 500 Mg Tab.Chew) 1,000 mg PO Q2H PRN PRN Reason: Indigestion Lactated Ringer's (Ringers, Lactated) 1,000 mls @ 100 mls/hr IV ASDIRECTED LUIS A Last Admin: 03/11/21 23:13 Dose: 100 mls/hr Documented by: Oxytocin/Lactated Ringer's (Pitocin In Lr 10 Units/1,000 Ml) 10 unit in 1,000 mls @ 12 mls/hr IV TITRATE LUIS A; Protocol Oxytocin/Lactated Ringer's (Pitocin In Lr 10 Units/1,000 Ml) 10 unit in 1,000 mls @ 500 mls/hr IV .CONTINUOUS LUIS A Nalbuphine HCl (Nalbuphine 10 Mg/1 Ml Vial) 10 mg IVPUSH Q2H PRN PRN Reason: Pain Sodium Chloride (Sodium Chloride 0.9% 10 Ml Syringe) 10 ml FLUSH 0900,2100 [facility]
[2021-03-12] MEDS ORDERED: fentaNYL 100 MCG/2 ML SDV EPIDUR PRN (03:38)
[2021-03-12] MEDS ORDERED: diphenhydrAMINE 50 MG/ML SDV IVPUSH PRN (03:38)
[2021-03-12] MEDS ORDERED: Bupivacaine/fentaNYL/NS 100 ML Bag EPIDUR PRN (03:38)
[2021-03-12] MEDS: Lactated Ringers 1,000 ML IV SCH ×4 (05:08→11:26)
--- NOTE | 2021-03-12 05:31 | PCM.LDHP ---
L&D History of Present Illness - General Date of Service: 03/12/21 Admit Problem/Dx: Patient Status Order with Admit Dx/Problem 03/11/21 22:08 Patient Status [ADT] Routine 03/11/21 22:42 Patient Status [ADT] Routine Admission Diagnosis/Problem Admission Diagnosis/Problem Source of Information: Patient History Limitations: Reports: No Limitations - History of Present Illness Introduction:: Patient is a 30 y/o at 39 2/7 wks who presented late last night with contractions. Doing well this AM. Contractions are stronger, but a little more spaced out. - Related Data Allergies/Adverse Reactions: Allergies Allergy/AdvReac Type Severity Reaction Status Date / Time No Known Allergies Allergy Verified 12/18/16 14:36 Home Medications: Home Meds Pnv No.95/Ferrous Fum/Folic AC [ Vitamin Tablet] 1 each PO DAILY 12/18/16 [History] Docusate Sodium [Colace] 100 mg PO BID PRN cap 02/21/18 [Rx] Ibuprofen [Motrin] 600 mg PO Q6H PRN tablet 02/21/18 [Rx] Past Medical History HEENT History: Reports: Impaired Vision Gastrointestinal History: Reports: GERD [employer]GER History: Reports: : 4 Para: 2 LMP (Approximate): - Infectious Disease History Infectious Disease History: Reports: Novel Coronavirus - Past Surgical History HEENT Surgical History: Reports: Oral Surgery Other HEENT Surgeries/Procedures: wisdom teeth extraction Social & Family History - Family History Family Medical History: No Pertinent Family History - Tobacco Use Tobacco Use Status *Q: Never Tobacco User Second Hand Smoke Exposure: No - Caffeine Use Caffeine Use: Reports: None - Alcohol Use Alcohol Use History: No Days Per Week of Alcohol Use: 0 Number of Drinks Per Day: 0 Total Drinks Per Week: 0 - Recreational Drug Use Recreational Drug Use: No H&P Review of Systems - Review of Systems: Review Of Systems: See Below General: Reports: No Symptoms Pulmonary: Reports: No Symptoms Cardiovascular: Reports: No Symptoms Gastrointestinal: Reports: Abdominal Pain Genitourinary: Reports: No Symptoms Musculoskeletal: Reports: No Symptoms Psychiatric: Reports: No Symptoms Neurological: Reports: No Symptoms L&D Exam - Exam Exam: See Below - Vital Signs Vital Signs: Last Vital Signs Temp 36.4 C 03/11/21 22:08 Pulse 89 03/11/21 22:08 Resp 16 03/11/21 22:08 BP 132/77 03/11/21 22:08 Pulse Ox 100 03/11/21 22:08 Weight: 94.529 kg - OB Specific Contraction Intensity: Moderate to Strong Movement: Active Heart Tones: Present Heart Tones per Min: 130 Heart Rate (FHR) Variability: Moderate (6-25 bpm) Presentation: Vertex - Aguilar Score Aguilar Score Cervix Position: Posterior Aguilar Score Consistency: Soft Aguilar Score Effacement: 51-70% Aguilar Score Dilation: 3-4 cm Aguilar Score Infant's Station: -3 Aguilar Score Total: 6 - Exam General: Alert, Oriented, Cooperative Lungs: Clear to Auscultation, Normal Respiratory Effort Cardiovascular: Regular Rate, Regular Rhythm GI/Abdominal Exam: Soft, Non-Tender Genitourinary: Normal external exam Extremities: Normal Inspection Skin: Warm, Dry, Intact - Patient Data Lab Results Last 24 hrs: Laboratory Results - last 24 hr 03/11/21 03/11/21 03/11/21 Range/Units 22:50 22:53 22:53 WBC 10.55 H (3.98-10.04) K/mm3 RBC 4.42 (3.98-5.22) M/mm3 Hgb 13.2 (11.2-15.7) gm/dl Hct 39.5 (34.1-44.9) % MCV 89.4 (79.4-94.8) fl MCH 29.9 (25.6-32.2) pg MCHC 33.4 (32.2-35.5) g/dl RDW Std Deviation 41.9 (36.4-46.3) fL Plt Count 200 (182-369) K/mm3 MPV 10.4 (9.4-12.3) fl Neut % (Auto) 70.4 (34.0-71.1) % Lymph % (Auto) 18.8 L (19.3-51.7) % [place]iscoe % (Auto) 8.7 (4.7-12.5) % Eos % (Auto) 1.5 (0.7-5.8) Baso % (Auto) 0.2 (0.1-1.2) % Neut # (Auto) 7.43 H (1.56-6.13) K/mm3 Lymph # (Auto) 1.98 (1.18-3.74) K/mm3 [place] # (Auto) 0.92 H (0.24-0.36) K/mm3 Eos # (Auto) 0.16 (0.04-0.36) K/mm3 Baso # (Auto) 0.02 (0.01-0.08) K/mm3 SARS-CoV-2 RNA (RUKHSANA) Positive H (NEGATIVE) Blood Type O NEGATIVE Gel Antibody Screen Negative Result Diagrams: 03/11/21 22:53 - Problem List (1) 39 weeks gestation of SNOMED Code(s): 29537709 ICD Code: Z3A.39 - 39 WEEKS GESTATION OF Status: Acute Current Visit: No (2) Rh negative status during SNOMED Code(s): 381266541 ICD Code: O09.899 - SUPERVISION OF OTHER HIGH RISK PREGNANCIES, UNSP TRIMESTER Status: Acute Current Visit: No Qualifiers: Trimester: third trimester Qualified Code(s): O26.893 - Other specified related conditions, third trimester; Z67.91 - Unspecified blood type, Rh negative Problem List Initiated/Reviewed/Updated: Yes Orders Last 24hrs: Active Orders 24 hr Category Date Time Status Patient Status [ADT] Routine ADT 03/11/21 22:08 Active Patient Status [ADT] Routine ADT 03/11/21 22:42 Active Activity as Tolerated [RC] PFP Care 03/11/21 22:41 Active Communication Order [RC] ASDIRECTED Care 03/11/21 22:41 Active Heart Tones [RC] ASDIRECTED Care 03/11/21 22:42 Active Non Stress Test [RC] PER UNIT ROUTINE Care 03/11/21 22:08 Active Notify Provider [RC] ASDIRECTED Care 03/12/21 03:38 Active Notify Provider [RC] PFP Care 03/11/21 22:41 Active Notify Provider [RC] PRN Care 03/11/21 22:41 Active Peripheral IV Care [RC] . DIRECTED Care 03/11/21 22:42 Active Pump Management, Intrathecal [RC] ASDIRECTED Care 03/11/21 22:43 Active Urinary Catheter Assessment [RC] ASDIRECTED Care 03/11/21 22:41 Active Vital Signs [RC] PER UNIT ROUTINE Care 03/11/21 22:08 Active Vital Signs [RC] PER UNIT ROUTINE Care 03/11/21 22:41 Active Regular Diet [DIET] Diet 03/11/21 Dinner Active CORONAVIRUS COVID-19 PCR PHL Stat Lab 03/12/21 01:15 Received RAPID PLASMA REAGIN,RPR [CHEM] Routine Lab 03/11/21 22:53 Received Bupivacaine/fentaNYL/NS [fentaNYL/Bupivacaine/NS 2 MCG- Med 03/12/21 03:38 Active 0.125% 100 ML] 100 ml EPIDUR ASDIRECTED PRN Calcium Carbonate [Tums] Med 03/11/21 22:41 Active 1,000 mg PO Q2H PRN Lactated Ringers [Ringers, Lactated] 1,000 ml Med 03/11/21 22:45 Active IV ASDIRECTED Nalbuphine [Nubain] Med 03/11/21 22:41 Active 10 mg IVPUSH Q2H PRN Oxytocin/Lactated Ringers [Pitocin in LR 10 Units/1,000 Med 03/11/21 22:45 Active ML] 10 unit in 1,000 ml IV .CONTINUOUS Oxytocin/Lactated Ringers [Pitocin in LR 10 Units/1,000 Med 03/11/21 22:45 Active ML] 10 unit in 1,000 ml IV TITRATE Sodium Chloride 0.9% [Saline Flush] Med 03/12/21 09:00 Active 10 ml FLUSH 0900,2100 diphenhydrAMINE [Benadryl] Med 03/12/21 03:38 Active 25 mg IVPUSH Q6H PRN ePHEDrine [ePHEDrine sulfate] Med 03/12/21 03:38 Active 5 mg IVPUSH ASDIRECTED PRN fentaNYL [Sublimaze] Med 03/12/21 03:38 Active 100 mcg EPIDUR Q3H PRN Electronic Heart Tones Ext w TOCO [WOMSER] Oth 03/11/21 22:41 Ordered Routine Electronic Heart Tones Internal [WOMSER] Per Unit Oth 03/11/21 22:41 Ordered Routine Peripheral IV Insertion Adult [OM.PC] Routine Oth 03/11/21 22:41 Ordered Resuscitation Status Routine Resus Stat 03/11/21 22:08 Ordered Medication Orders Calcium Carbonate/Glycine (Calcium Carbonate 500 Mg Tab.Chew) 1,000 mg PO Q2H PRN PRN Reason: Indigestion Diphenhydramine HCl (Diphenhydramine 50 Mg/Ml Sdv) 25 mg IVPUSH Q6H PRN PRN Reason: pruritis Ephedrine Sulfate (Ephedrine 50 Mg/Ml Sdv) 5 mg IVPUSH ASDIRECTED PRN PRN Reason: Hypotension Fentanyl (Fentanyl 100 Mcg/2 Ml Sdv) 100 mcg EPIDUR Q3H PRN PRN Reason: Pain Fentanyl/Bupivacaine HCl (Bupivacaine/Fentanyl/Ns 100 Ml Bag) 100 ml EPIDUR ASDIRECTED PRN PRN Reason: Pain Lactated Ringer's (Ringers, Lactated) 1,000 mls @ 100 mls/hr IV ASDIRECTED [facility] Last Admin: 03/12/21 05:08 Dose: 100 mls/hr Documented by: Infusion: 03/12/21 05:08 Dose: 100 mls/hr Documented by: Admin: 03/11/21 23:13 Dose: 100 mls/hr Documented by: MAYLIN Oxytocin/Lactated Ringer's (Pitocin In Lr 10 Units/1,000 Ml) 10 unit in 1,000 mls @ 12 mls/hr IV TITRATE LUIS A; Protocol Last Admin: 03/12/21 05:09 Dose: 2 munits/min, 12 mls/hr Documented by: MAYLIN Oxytocin/Lactated Ringer's (Pitocin In Lr 10 Units/1,000 Ml) 10 unit in 1,000 mls @ 500 mls/hr IV .CONTINUOUS LUIS A Nalbuphine HCl (Nalbuphine 10 Mg/1 Ml Vial) 10 mg IVPUSH Q2H PRN PRN Reason: Pain Sodium Chloride (Sodium Chloride 0.9% 10 Ml Syringe) 10 ml FLUSH 0900,2100 [facility] Assessment/Plan Comment:: * labs done * Positive for COVID * Continue to allow to labor on own. If needed can augment with pitocin or AROM * Pain management per patient preference * Anticipate
[2021-03-12] MEDS ORDERED: Sodium Chloride 0.9% 10 ML Syringe FLUSH SCH (09:00)
[2021-03-12] MEDS: ePHEDrine 50 MG/ML SDV IVPUSH PRN ×3 (10:05→10:26)
--- NOTE | 2021-03-12 12:40 | PCM.DEL ---
L & D Note - General Info Date of Service: 03/12/21 - Delivery Note Labor: Augmented by ARM, Augmented by Oxytocin Delivery Outcome: Livebirth Infant Delivery Method: Spontaneous Vaginal Delivery-Single Delivery Mode: Spontaneous Presentation: Right Occiput Anterior (AMY) Nuchal Cord: Present, Reduced Anesthesia Type: Epidural Amniotic Fluid Description: Clear Episiotomy Type: None Laceration: 1st Degree Placenta: Intact, Spontaneous Cord: 3 Vessels Estimated Blood Loss: 100 : Bulb Syringe, Stimulated, Warmed, Loa Used, Warmer Used Delivery Comments (Free Text/Narrative):: Patient found to be complete and began pushing. With maternal pushing effort head delivered from AMY presentation. Nuchal cord present, but tight so not reduced. With gentle downward traction the shoulders and body delivered. Infant placed on maternal abdomen. Cord clamped and cut. Cord blood obtained. Placenta allowed time to separate and expelled intact. Inspection of perineum showed 1st degree which was hemostatic and so not repaired - General Info Date of Service: 03/12/21 - Patient Data Vitals - Most Recent: Last Vital Signs Temp 36.4 C 03/11/21 22:08 Pulse 89 03/11/21 22:08 Resp 16 03/11/21 22:08 BP 132/77 03/11/21 22:08 Pulse Ox 100 03/11/21 22:08 Weight - Most Recent: 94.529 kg I&O - Last 24 Hours: Intake & Output 03/11/21 03/12/21 03/12/21 22:59 06:59 14:59 Intake Total 1000 3000 Balance 1000 3000 - Exam Urinary Catheter Total Time: 0Days 0Hours - Problem List & Annotations (1) 39 weeks gestation of SNOMED Code(s): 56328935 Code(s): Z3A.39 - 39 WEEKS GESTATION OF Status: Acute Current Visit: No (2) Rh negative status during SNOMED Code(s): 954733781 Code(s): O09.899 - SUPERVISION OF OTHER HIGH RISK PREGNANCIES, UNSP TRIMESTER Status: Acute Current Visit: No Qualifiers: Trimester: third trimester Qualified Code(s): O26.893 - Other specified related conditions, third trimester; Z67.91 - Unspecified blood type, Rh negative (3) (normal spontaneous vaginal delivery) SNOMED Code(s): 78056811, 201884273 Code(s): O80 - ENCOUNTER FOR FULL-TERM UNCOMPLICATED DELIVERY Status: Acute Current Visit: No - Problem List Review Problem List Initiated/Reviewed/Updated: Yes - My Orders Last 24 Hours: My Active Orders 03/11/21 Dinner Regular Diet [DIET] 03/11/21 22:08 Patient Status [ADT] Routine Non Stress Test [RC] PER UNIT ROUTINE Vital Signs [RC] PER UNIT ROUTINE Resuscitation Status Routine 03/11/21 22:41 Activity as Tolerated [RC] PFP Communication Order [RC] ASDIRECTED Notify Provider [RC] PFP Notify Provider [RC] PRN Urinary Catheter Assessment [RC] ASDIRECTED Vital Signs [RC] PER UNIT ROUTINE Calcium Carbonate [Tums] 1,000 mg PO Q2H PRN Nalbuphine [Nubain] 10 mg IVPUSH Q2H PRN Electronic Heart Tones Ext w TOCO [WOMSER] Routine Electronic Heart Tones Internal [WOMSER] Per Unit Routine Peripheral IV Insertion Adult [OM.PC] Routine 03/11/21 22:42 Patient Status [ADT] Routine Heart Tones [RC] ASDIRECTED Peripheral IV Care [RC] . DIRECTED 03/11/21 22:43 Pump Management, Intrathecal [RC] ASDIRECTED 03/11/21 22:45 Lactated Ringers [Ringers, Lactated] 1,000 ml IV ASDIRECTED Oxytocin/Lactated Ringers [Pitocin in LR 10 Units/1,000 ML] 10 unit in 1,000 ml IV .CONTINUOUS Oxytocin/Lactated Ringers [Pitocin in LR 10 Units/1,000 ML] 10 unit in 1,000 ml IV TITRATE 03/11/21 22:53 RAPID PLASMA REAGIN,RPR [CHEM] Routine 03/12/21 01:15 CORONAVIRUS COVID-19 PCR PHL Stat 03/12/21 09:00 Sodium Chloride 0.9% [Saline Flush] 10 ml FLUSH 0900,2100 - Assessment Assessment:: PPD#0 - Plan Plan:: * Routine cares * Breast feeding * Discharge home in 1-2 days
--- NOTE | 2021-03-12 13:22 | PCM48HPAN ---
Post Anesthesia Note - EVALUATION WITHIN 48HRS OF ANESTHETIC Vital Signs in Normal Range: Yes Patient Participated in Evaluation: Yes Respiratory Function Stable: Yes Airway Patent: Yes Cardiovascular Function Stable: Yes Hydration Status Stable: Yes Pain Control Satisfactory: Yes Nausea and Vomiting Control Satisfactory: Yes Mental Status Recovered: Yes Vital Signs: Last Vital Signs Temp 97.5 F 03/11/21 22:08 Pulse 89 03/11/21 22:08 Resp 16 03/11/21 22:08 BP 132/77 03/11/21 22:08 Pulse Ox 100 03/11/21 22:08
[2021-03-12] MEDS ORDERED: Docusate Sodium 100 MG Cap PO PRN (13:23)
[2021-03-12] MEDS ORDERED: Benzocaine/Menthol 20%-0.5% Spray 78 GM Cannister TOP PRN (13:23)
[2021-03-12] MEDS ORDERED: Witch Hazel Medicated Pads 40/Jar TOP PRN (13:23)
[2021-03-12] MEDS: Ibuprofen 600 MG Tab PO PRN (17:10)
[2021-03-12] MEDS: Acetaminophen 325 MG Tab PO PRN (18:46)
[2021-03-13] MEDS: Ibuprofen 600 MG Tab PO PRN ×2 (00:33→11:06)
[2021-03-13] MEDS: Acetaminophen 325 MG Tab PO PRN ×2 (00:33→05:21)
--- NOTE | 2021-03-13 07:50 | PCM.PNPP ---
- General Info Date of Service: 03/13/21 Functional Status: Reports: Pain Controlled, Tolerating Diet, Ambulating, Urinating - Review of Systems General: Reports: No Symptoms Pulmonary: Reports: No Symptoms Cardiovascular: Reports: No Symptoms Gastrointestinal: Reports: No Symptoms Genitourinary: Reports: No Symptoms Musculoskeletal: Reports: No Symptoms Neurological: Reports: No Symptoms - General Info Date of Service: 03/13/21 - Patient Data Vital Signs - Most Recent: Last Vital Signs Temp 36.7 C 03/13/21 05:19 Pulse 80 03/13/21 05:19 Resp 14 03/13/21 05:19 BP 124/73 03/13/21 05:19 Pulse Ox 98 03/13/21 05:19 Weight - Most Recent: 94.529 kg I&O - Last 24 Hours: Intake & Output 03/12/21 03/13/21 03/13/21 22:59 06:59 14:59 Intake Total 180 Balance 180 Lab Results - Last 24 Hours: Laboratory Results - last 24 hr 03/11/21 Range/Units 22:53 RPR Non-reactive (NONREACTIVE) Med Orders - Current: Current Medications Acetaminophen (Acetaminophen 325 Mg Tab) 650 mg PO Q4H PRN PRN Reason: mild pain or fever Last Admin: 03/13/21 05:21 Dose: 650 mg Documented by: Benzocaine/Menthol (Benzocaine/Menthol 20%-0.5% E[place] 78 Gm Cannister) 0 gm TOP ASDIRECTED PRN PRN Reason: Perineal Comfort Measure Docusate Sodium (Docusate Sodium 100 Mg Cap) 100 mg PO BID PRN PRN Reason: Constipation Ibuprofen (Ibuprofen 600 Mg Tab) 600 mg PO Q6H PRN PRN Reason: Mild pain or fever Last Admin: 03/13/21 00:33 Dose: 600 mg Documented by: Jay Payne (Jay Murphyel Medicated Pads 40/Jar) 1 pad TOP ASDIRECTED PRN PRN Reason: Perineal Comfort Measure Discontinued Medications Calcium Carbonate/Glycine (Calcium Carbonate 500 Mg Tab.Chew) 1,000 mg PO Q2H PRN PRN Reason: Indigestion Diphenhydramine HCl (Diphenhydramine 50 Mg/Ml Sdv) 25 mg IVPUSH Q6H PRN PRN Reason: pruritis Ephedrine Sulfate (Ephedrine 50 Mg/Ml Sdv) 5 mg IVPUSH ASDIRECTED PRN PRN Reason: Hypotension Last Admin: 03/12/21 10:26 Dose: 10 mg Documented by: Fentanyl (Fentanyl 100 Mcg/2 Ml Sdv) 100 mcg EPIDUR Q3H PRN PRN Reason: Pain Last Admin: 03/12/21 08:06 Dose: 100 mcg Documented by: Fentanyl/Bupivacaine HCl (Bupivacaine/Fentanyl/Ns 100 Ml Bag) 100 ml EPIDUR ASDIRECTED PRN PRN Reason: Pain Last Admin: 03/12/21 08:06 Dose: 100 ml Documented by: Lactated Ringer's (Ringers, Lactated) 1,000 mls @ 100 mls/hr IV ASDIRECTED LUIS A Last Admin: 03/12/21 11:26 Dose: 5 mls/hr Documented by: Oxytocin/Lactated Ringer's (Pitocin In Lr 10 Units/1,000 Ml) 10 unit in 1,000 mls @ 12 mls/hr IV TITRATE LUIS A; Protocol Last Titration: 03/12/21 09:52 Dose: 8 munits/min, 48 mls/hr Documented by: Oxytocin/Lactated Ringer's (Pitocin In Lr 10 Units/1,000 Ml) 10 unit in 1,000 mls @ 500 mls/hr IV .CONTINUOUS LUIS A Nalbuphine HCl (Nalbuphine 10 Mg/1 Ml Vial) 10 mg IVPUSH Q2H PRN PRN Reason: Pain Sodium Chloride (Sodium Chloride 0.9% 10 Ml Syringe) 10 ml FLUSH 0900,2100 [facility] Last Admin: 03/12/21 20:11 Dose: Not Given Documented by: - Infant Interaction Infant Disposition, : [place] in Room with Family Interaction: Holding Infant Feeding: Bottle Fed Support Person: - Recovery Exam Fundal Tone: Firm Fundal Level: 2 Fingerbreadths Below Umbilicus Fundal Placement: Midline Lochia Amount: Small Lochia Color: Rubra/Red Perineum Description: Intact, Minimal Bruising/Swelling Episiotomy/Laceration: None Bladder Status: Nonpalpable, Voiding Urinary Elimination: Voided - Exam General: Alert, Oriented, Cooperative GI/Abdominal Exam: Soft, Non-Tender - Problem List & Annotations (1) 39 weeks gestation of SNOMED Code(s): 15675634 Code(s): Z3A.39 - 39 WEEKS GESTATION OF Status: Acute Current Visit: No (2) Rh negative status during SNOMED Code(s): 934776601 Code(s): O09.899 - SUPERVISION OF OTHER HIGH RISK PREGNANCIES, UNSP TRIMESTER Status: Acute Current Visit: No Qualifiers: Trimester: third trimester Qualified Code(s): O26.893 - Other specified related conditions, third trimester; Z67.91 - Unspecified blood type, Rh negative (3) (normal spontaneous vaginal delivery) SNOMED Code(s): 00548960, 782849580 Code(s): O80 - ENCOUNTER FOR FULL-TERM UNCOMPLICATED DELIVERY Status: Acute Current Visit: No (4) COVID-19 affecting childbirth SNOMED Code(s): 417608081 Code(s): O98.52 - OTHER VIRAL DISEASES COMPLICATING CHILDBIRTH; U07.1 - COVID-19 Status: Acute Current Visit: Yes - Problem List Review Problem List Initiated/Reviewed/Updated: Yes - My Orders Last 24 Hours: My Active Orders 03/12/21 Lunch Regular Diet [DIET] 03/12/21 13:23 Acetaminophen [TylenoL] 650 mg PO Q4H PRN Benzocaine/Menthol [Dermoplast Pain Relief 20%-0.5% [place]] See Dose Instructions TOP ASDIRECTED PRN Docusate Sodium [Colace] 100 mg PO BID PRN Ibuprofen [Motrin] 600 mg PO Q6H PRN witch Kerry [Tucks] 1 pad TOP ASDIRECTED PRN Heat Therapy [OM.PC] PRN 03/12/21 13:23 Activity as Tolerated [RC] PER UNIT ROUTINE Vital Signs [RC] 03,09,15,21 Assess Lochia [WOMSER] Per Unit Routine Assess Uterine Involution [WOMSER] Per Unit Routine Breast Pump [WOMSER] Per Unit Routine Ice Therapy [OM.PC] Per Unit Routine Perineal Care [OM.PC] Per Unit Routine Peripheral IV Discontinue [OM.PC] Routine Sitz Bath [OM.PC] Per Unit Routine 03/13/21 07:49 Ready for Discharge [RC] PER UNIT ROUTINE 03/13/21 13:23 Heat Therapy [OM.PC] PRN - Assessment Assessment:: PPD#1 - Plan Plan:: * Routine cares * Breast feeding * Discharge home today
--- NOTE | 2021-03-13 07:50 | PCM.DCSUM1 ---
Discharge Summary - Discharge Data Discharge Date: 03/13/21 Discharge Disposition: Home, Self-Care 01 Condition: Good - Referral to Home Health Primary Care Physician: PCP None - Discharge Diagnosis/Problem(s) (1) 39 weeks gestation of SNOMED Code(s): 20938753 ICD Code: Z3A.39 - 39 WEEKS GESTATION OF Status: Acute Current Visit: No (2) Rh negative status during SNOMED Code(s): 356783504 ICD Code: O09.899 - SUPERVISION OF OTHER HIGH RISK PREGNANCIES, UNSP TRIMESTER Status: Acute Current Visit: No Qualifiers: Trimester: third trimester Qualified Code(s): O26.893 - Other specified related conditions, third trimester; Z67.91 - Unspecified blood type, Rh negative (3) (normal spontaneous vaginal delivery) SNOMED Code(s): 03743343, 896473304 ICD Code: O80 - ENCOUNTER FOR FULL-TERM UNCOMPLICATED DELIVERY Status: Acute Current Visit: No - Patient Summary/Data Complications: None Consults: None Recommended Follow-up Testing/Procedures: Follow up in 3 weeks for check Hospital Course: 30 y/o presented at 39 2/7 wks in labor. Augmented with Pitocin and IOL. Progressed well to complete dilation and underwent an uncomplicated . See delivery note. did well and was discharged home on PPD#1 - Patient Instructions Diet: Regular Diet as Tolerated Activity: As Tolerated Activity, Other: Pelvic rest for 6 weeks Driving: May Drive Today Showering/Bathing: May Shower Showering/Bathing, Other: May Bathe Notify Provider of: Fever, Increased Pain, Swelling and Redness, Drainage, Nausea and/or Vomiting - Discharge Plan *PRESCRIPTION DRUG MONITORING PROGRAM REVIEWED*: No *COPY OF PRESCRIPTION DRUG MONITORING REPORT IN PATIENT AUTUMN: No Home Medications: Home Meds Pnv No.95/Ferrous Fum/Folic AC [ Vitamin Tablet] 1 each PO DAILY 12/18/16 [History] Docusate Sodium [Colace] 100 mg PO BID PRN cap 02/21/18 [Rx] Ibuprofen [Motrin] 600 mg PO Q6H PRN tablet 02/21/18 [Rx] Acetaminophen [Tylenol] 650 mg PO Q4H PRN tablet 03/13/21 [Rx] Referrals: Vianey Pond MD [Physician] - (3 weeks check - can be telehealth from home (no need for vitals at [place])) - Discharge Summary/Plan Comment DC Time >30 min.: No Total # of Minutes for Discharge Time: 15 - Patient Data Vitals - Most Recent: Last Vital Signs Temp 36.7 C 03/13/21 05:19 Pulse 80 03/13/21 05:19 Resp 14 03/13/21 05:19 BP 124/73 03/13/21 05:19 Pulse Ox 98 03/13/21 05:19 Weight - Most Recent: 94.529 kg I&O - Last 24 hours: Intake & Output 03/12/21 03/13/21 03/13/21 22:59 06:59 14:59 Intake Total 180 Balance 180
[2021-03-13] MEDS ORDERED: Measles, Mumps & Rubella Vaccine 0.5 ML SDV SUBCUT ONE (10:47)
== END 2021-03-13 13:55 | disposition home or self-care (01) | DRG 560 ==
LOC: JD.OBCHECK 21:56 → JD.OB 22:09 → OBSVTOIN 22:42 → JD.OBCHECK 23:07 → JD.OB 03-12 13:44
PROVIDERS: ADMIT Obstetrics & Gynecology; ATTEND Obstetrics & Gynecology
PROC: 10E0XZZ Delivery of Products of Conception, External Approach (ICD-10-PCS; principal; 2021-03-11)
PROC: 0HQ9XZZ Repair Perineum Skin, External Approach (ICD-10-PCS; 2021-03-11)
PROC: 10907ZC Drainage of Amniotic Fluid, Therapeutic from Products of Conception, Via Natural or Artificial Opening (ICD-10-PCS; 2021-03-11)
PROC: 3E0R3BZ Introduction of Anesthetic Agent into Spinal Canal, Percutaneous Approach (ICD-10-PCS; 2021-03-11)
PROC: 00HU33Z Insertion of Infusion Device into Spinal Canal, Percutaneous Approach (ICD-10-PCS; 2021-03-11)
DX: O98.52 Other viral diseases complicating childbirth (principal); U07.1 COVID-19; Z3A.39 39 weeks gestation of pregnancy; Z37.0 Single live birth; O69.1XX0 Labor and delivery complicated by cord around neck, with compression, not applicable or unspecified
CPT/HCPCS: 36415; 51701; 59025; 59409; 85025; 86592; 86850; 86900; 86901; 90471; 90707; A9270-GY; J2590; J3010; J3490; J7120; U0002

== ENCOUNTER 2023-04-19 01:19 | Inpatient (IN) | payer BC ==
[~2023-04-19 01:19] MED LIST changes: +Lidocaine 1% 10 ML MDV ONE
[2023-04-19] MEDS ORDERED: Nalbuphine HCl 10 MG/ 1ML Amp IVPUSH PRN (19:13)
[2023-04-19] MEDS ORDERED: Ondansetron 4 MG/2 ML SDV IVPUSH PRN (19:13)
[2023-04-19] MEDS ORDERED: Lidocaine 1% 50 ML MDV INJECT PRN (19:13)
[2023-04-19] MEDS ORDERED: Sodium Chloride 0.9% 10 ML Syringe FLUSH PRN (19:13)
[2023-04-19] MEDS ORDERED: Oxytocin/Lactated Ringers 30 UNIT/500 ML BAG IV SCH (19:15)
[2023-04-19 19:42] LABS: BASOPHILS PERCENT AUTO 0.3 % (0.0-1.0); EOSINOPHILS ABSOLUTE AUTO 0.1 K/mm3 (0.0-0.4); HEMATOCRIT 38.3 % (37.0-47.0); IMMATURE GRAN ABSOLUTE AUTO 0.05 K/mm3 (0.00-0.05); IMMATURE GRAN PERCENT AUTO 0.4 % (0.0-0.4); LYMPHOCYTES ABSOLUTE AUTO 2.3 K/mm3 (1.0-4.8); LYMPHOCYTES PERCENT AUTO 18.6 % (24.0-44.0); MEAN CORPUSCULAR HEMOGLOBIN 30.4 pg (28.0-32.0); MEAN CORPUSCULAR HGB CONC 33.9 g/dl (32.0-36.0); MEAN CORPUSCULAR VOLUME 89.5 fl (83.0-99.0); MEAN PLATELET VOLUME 10.5 fl (9.4-12.3); MONOCYTES ABSOLUTE AUTO 0.9 K/mm3 (0.0-0.8); MONOCYTES PERCENT AUTO 7.4 % (0.0-8.0); NEUTROPHILS PERCENT AUTO 72.3 % (41.0-71.0); PLATELET COUNT,PLT 188 K/mm3 (150-400); RED BLOOD CELL COUNT 4.28 M/mm3 (4.10-5.30); WHITE BLOOD CELL COUNT,WBC 12.49 K/mm3 (3.9-11.3)
[2023-04-19] MEDS: Lactated Ringers 1,000 ML IV SCH (19:47)
[2023-04-19] MEDS: Oxytocin/Lactated Ringers 30 UNIT/500 ML BAG IV SCH (19:48)
[2023-04-19] MEDS ORDERED: Sodium Chloride 0.9% 10 ML Syringe FLUSH SCH (21:00)
[2023-04-19] MEDS ORDERED: diphenhydrAMINE 50 MG/ML SDV IVPUSH PRN (21:20)
[2023-04-19] MEDS ORDERED: Phenylephrine 1% 10 MG/ML SDV IVPUSH PRN (21:20)
[2023-04-19] MEDS ORDERED: ePHEDrine 50 MG/ML SDV IVPUSH PRN (21:20)
[2023-04-19] MEDS: fentaNYL 100 MCG/2 ML SDV EPIDUR PRN (21:40)
[2023-04-19] MEDS: Bupivacaine/fentaNYL/NS 100 ML Bag EPIDUR PRN (21:40)
[2023-04-20] MEDS: Benzocaine/Menthol 20%-0.5% Spray 78 GM Cannister TOP PRN (03:11)
[2023-04-20] MEDS: Witch Hazel Medicated Pads 40/Jar TOP PRN (03:11)
[2023-04-20] MEDS: Ibuprofen 600 MG Tab PO PRN (08:01)
[2023-04-20] MEDS: Acetaminophen 325 MG Tab PO PRN (17:44)
== END 2023-04-21 10:43 | disposition home or self-care (01) | DRG 560 ==
LOC: JD.OB 01:19 → OBSVTOIN 04-20 01:19 → JD.OB 04-20 01:20
PROVIDERS: ADMIT Obstetrics & Gynecology; ATTEND Obstetrics & Gynecology
PROC: 10E0XZZ Delivery of Products of Conception, External Approach (ICD-10-PCS; principal; 2023-04-20)
PROC: 3E0R3BZ Introduction of Anesthetic Agent into Spinal Canal, Percutaneous Approach (ICD-10-PCS; 2023-04-20)
PROC: 00HU33Z Insertion of Infusion Device into Spinal Canal, Percutaneous Approach (ICD-10-PCS; 2023-04-20)
PROC: 10907ZC Drainage of Amniotic Fluid, Therapeutic from Products of Conception, Via Natural or Artificial Opening (ICD-10-PCS; 2023-04-20)
DX: O80 Encounter for full-term uncomplicated delivery (principal); Z3A.39 39 weeks gestation of pregnancy; Z37.0 Single live birth; Z86.16 Personal history of COVID-19
CPT/HCPCS: 36415; 51702; 59025; 59409; 85025; 86592; 86850; 86870; 86900; 86901; A9270-GY; J3010; J3490; J7120; J7999